=== PATIENT | female | born 1975 | race American Indian/Alaskan Native ===

== ENCOUNTER 2018-11-12 08:45 | Emergency (ER) | payer MEDICAID ==
[2018-11-12 08:59] VITALS: BP 123/65
[2018-11-12] MEDS ORDERED: TORADOL IM ONE (09:20)
--- NOTE | 2018-11-12 09:22 | Emergency Department Report ---
ED Back Pain/Injury HPI - General Chief Complaint: Abdominal Pain Stated Complaint: R SIDE PAIN Time Seen by Provider: 11/12/18 09:19 Source: patient Limitations: No Limitations - History of Present Illness Initial Comments: Patient is a 43-year-old [place] female presenting with right lower back pain for the past 2 weeks. 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 She denies any direct trauma. Patient denies abdominal pain dysuria or abnormal vaginal bleeding. Pain is worse with movement and with bending over. Patient states is aching sensation. Radiation: none Severity scale (0 -10): 6 Associated Symptoms: denies: chest pain, difficulty walking, cough, difficulty urinating, diaphoresis, incontinence, fever/chills, constipation, headaches, abdominal pain, loss of appetite, malaise, nausea/vomiting, rash, seizure, shortness of breath, syncope - Related Data Previous Rx's Medication Instructions Recorded Last Taken Type Ibuprofen [Motrin] 600 mg PO Q8H PRN #20 tablet 11/12/18 Unknown Rx methOCARBAMOL [Robaxin TAB] 500 mg PO Q6H PRN #15 tablet 11/12/18 Unknown Rx traMADol [Ultram] 50 mg PO Q6HR PRN #10 tablet 11/12/18 Unknown Rx Allergies Allergy/AdvReac Type Severity Reaction Status Date / Time No Known Allergies Allergy Verified 11/12/18 08:46 ED Review of Systems ROS: Stated complaint: R SIDE PAIN Other details as noted in HPI Comment: All other systems reviewed and negative ED Past Medical Hx - Past Medical History Thyroid disease ED Back Pain Physical Exam - Exam General: Vital signs noted. No distress. Alert and acting appropriately. Back/Abdomen: Yes Perilumbar Tenderness (Right sided point tenderness), No Abdominal Tenderness, No Perithoracic Tenderness, No Sacroiliac Tenderness, No Flank Tenderness, No Straight Leg Raise Pain Neuro: Yes Normal Sensation, Yes Normal DTR's, Yes Normal Gait, No Motor Weakness ED Course Vital Signs 11/12/18 08:55 Temperature 97.8 F Pulse Rate 63 Respiratory 20 Rate Blood Pressure 123/65 [Right] O2 Sat by Pulse 96 Oximetry Ed Back Pain Tests - Tests Tests: Normal UA ED Medical Decision Making - Lab Data Lab Results 11/12/18 Range/Units 09:14 Urine Color Yellow (Yellow) Urine Turbidity Clear (Clear) Urine pH 5.0 (5.0-7.0) Ur Specific [place] 1.028 (1.003-1.030) Urine Protein <15 mg/dl (Negative) mg/dL Urine Glucose (UA) Neg (Negative) mg/dL Urine Ketones Neg (Negative) mg/dL Urine Blood Sm (Negative) Urine Nitrite Neg (Negative) Urine Bilirubin Neg (Negative) Urine Urobilinogen < 2.0 (<2.0) mg/dL Ur Leukocyte Esterase Neg (Negative) Urine WBC (Auto) 2.0 (0.0-6.0) /HPF Urine RBC (Auto) 5.0 (0.0-6.0) /HPF U Epithel Cells (Auto) 2.0 (0-13.0) /HPF Urine Mucus Few /HPF Critical care attestation.: If time is entered above; I have spent that time in minutes in the direct care of this critically ill patient, excluding procedure time. ED Disposition Clinical Impression: Lumbar strain Qualifiers: Encounter type: initial encounter Qualified Code(s): S39.012A - Strain of muscle, fascia and tendon of lower back, initial encounter Disposition: DC-01 TO HOME OR SELFCARE Is pt being admited?: No Does the pt Need Aspirin: No Condition: Stable Instructions: Muscle Strain (ED) Referrals: KATHLEEN SALCEDO MD [Primary Care Provider] - 3-5 Days Forms: Work/School Release Form(ED) Time of Disposition: 09:53
[2018-11-12] MEDS ORDERED: ULTRAM PO ONE (09:30)
[2018-11-12] MEDS ORDERED: IBUPROFEN PO ONE (09:30)
[2018-11-12 09:39] LABS: Bilirubin,Urine NEG (Negative); Blood,Urine SM (Negative); Color,Urine Yellow (Yellow); Mucus,Urine FEW /HPF; Protein,Urine <15 mg/dL mg/dL (Negative); Urobilinogen,Urine < 2.0 mg/dL (<2.0)
== END 2018-11-12 10:01 | disposition home or self-care (01) ==
LOC: ED 08:45
DX: S39.012A Strain of muscle, fascia and tendon of lower back, initial encounter (principal); W94.29XA Exposure to other rapid changes in air pressure during ascent, initial encounter; Y93.89 Activity, other specified; Y92.89 Other specified places as the place of occurrence of the external cause; Y99.8 Other external cause status
CPT/HCPCS: 81001; 99283; J1885

== ENCOUNTER 2019-07-19 10:01 | Emergency (ER) | payer MEDICAID, OTHER ==
--- NOTE | 2019-07-19 10:13 | Event Note ---
ED Screening Note ED Screening Note: right knee swelling and right leg swelling states never had before no fall or injury no recent travel, no recent surgery, no hormones PMHx anxiety and depression no allergies to meds sister hx of DVT no personal hx of DVT/PE This initial assessment/diagnostic orders/clinical plan/treatment(s) is/are s ubject to change based on patients health status, clinical progression and re- assessment by fellow clinical providers in the ED. Further treatment and workup at subsequent clinical providers discretion. Patient/guardian urged not to elope from the ED as their condition may be serious if not clinically assessed and managed. Initial orders include: US BOWENS
--- NOTE | 2019-07-19 11:15 | Emergency Department Report ---
ED General Adult HPI - General Chief complaint: Extremity Problem,Nontraumatic Stated complaint: RT KNEE/LEG SWELLING PAIN Time Seen by Provider: 07/19/19 11:14 Source: patient Mode of arrival: Ambulatory Limitations: No Limitations - History of Present Illness Initial comments: 43-year-old -[place] female patient with history of anxiety and dep ression presents with complaints of right lower leg and knee swelling for the past week. She denies any previous history of DVT/PE, shortness of breath/chest pain, hormone therapy, recent long travel, or recent surgeries. She admits to history of blood clots in her sister. She rates the pain in her leg at a 5/10 in severity. She denies any injury to the leg or knee. -: Sudden Severity scale (0 -10): 5 Quality: aching Consistency: intermittent Improves with: none Worsens with: other (palpation) Associated Symptoms: denies other symptoms Treatments Prior to Arrival: none - Related Data Previous Rx's Medication Instructions Recorded Last Taken Type Ibuprofen [Motrin] 600 mg PO Q8H PRN #20 tablet 11/12/18 Unknown Rx methOCARBAMOL [Robaxin TAB] 500 mg PO Q6H PRN #15 tablet 11/12/18 Unknown Rx traMADoL [Ultram] 50 mg PO Q6HR PRN #10 tablet 11/12/18 Unknown Rx ALBUTEROL Inhaler (OR & NICU) 2 puff IH Q4HR PRN #1 inhalation 04/30/19 Unknown Rx [ProAir HFA Inhaler] Amoxicillin [Amoxicillin TAB] 875 mg PO BID #14 tablet 04/30/19 Unknown Rx Cetirizine HCl [Zyrtec 10mg tab] 10 mg PO DAILY #30 tablet 04/30/19 Unknown Rx Fluticasone [Flonase] 1 spray NS QDAY #1 bottle 04/30/19 Unknown Rx Naproxen [Naprosyn] 500 mg PO BID PRN #20 tablet 04/30/19 Unknown Rx predniSONE [Deltasone] 20 mg PO DAILY #15 tablet 04/30/19 Unknown Rx Allergies Allergy/AdvReac Type Severity Reaction Status Date / Time No Known Allergies Allergy Verified 11/12/18 08:46 ED Review of Systems ROS: Stated complaint: RT KNEE/LEG SWELLING PAIN Other details as noted in HPI Comment: All other systems reviewed and negative Cardiovascular: as per HPI Musculoskeletal: as per HPI ED Past Medical Hx - Past Medical History Previous Medical History?: Yes Hx Psychiatric Treatment: Yes (Anxiety, depression) Additional medical history: Thyroid disease - Surgical History Past Surgical History?: Yes Additional Surgical History: C-sections X3, Tubal Ligation - Social History Smoking Status: Never Smoker - Medications Home Medications: Home Medications Medication Instructions Recorded Confirmed Last Taken Type Ibuprofen [Motrin] 600 mg PO Q8H PRN #20 tablet 11/12/18 Unknown Rx methOCARBAMOL [Robaxin TAB] 500 mg PO Q6H PRN #15 tablet 11/12/18 Unknown Rx traMADoL [Ultram] 50 mg PO Q6HR PRN #10 tablet 11/12/18 Unknown Rx ALBUTEROL Inhaler (OR & NICU) 2 puff IH Q4HR PRN #1 inhalation 04/30/19 Unknown Rx [ProAir HFA Inhaler] Amoxicillin [Amoxicillin TAB] 875 mg PO BID #14 tablet 04/30/19 Unknown Rx Cetirizine HCl [Zyrtec 10mg tab] 10 mg PO DAILY #30 tablet 04/30/19 Unknown Rx Fluticasone [Flonase] 1 spray NS QDAY #1 bottle 04/30/19 Unknown Rx Naproxen [Naprosyn] 500 mg PO BID PRN #20 tablet 04/30/19 Unknown Rx predniSONE [Deltasone] 20 mg PO DAILY #15 tablet 04/30/19 Unknown Rx ED Physical Exam - General Limitations: No Limitations General appearance: alert, in no apparent distress, obese - Head Head exam: Present: atraumatic, normocephalic - Eye Eye exam: Present: normal appearance. Absent: scleral icterus - Respiratory Respiratory exam: Present: normal lung sounds bilaterally. Absent: respiratory distress - Cardiovascular Cardiovascular Exam: Present: regular rate, normal rhythm. Absent: systolic murmur, diastolic murmur, rubs, gallop - GI/Abdominal GI/Abdominal exam: Absent: guarding - Extremities Exam Extremities exam: Present: full ROM, calf tenderness (right side, no pitting edema noted, normal pedal pulses noted bilaterally). Absent: pedal edema, joint swelling - Back Exam Back exam: Present: full ROM - Neurological Exam Neurological exam: Present: alert, oriented X3 - Psychiatric Psychiatric exam: Present: normal affect, normal mood - Skin Skin exam: Present: warm, dry, intact, normal color. Absent: rash ED Course Vital Signs 07/19/19 12:25 Temperature 98.4 F Pulse Rate 59 L Respiratory 22 Rate Blood Pressure 119/75 [Right] O2 Sat by Pulse 98 Oximetry ED Medical Decision Making - Radiology Data Radiology results: report reviewed DUPLEX DOPPLER RIGHT LOWER EXTREMITY VEINS INDICATION: RLE edema FINDINGS: There is no thrombus within the deep veins of the right lower extremity from the common femoral to the calf veins. There is normal compression and augmentation on spectral analysis. IMPRESSION: No sonographic evidence for DVT in the right lower extremity. - Medical Decision Making 43-year-old -[place] female patient with history of anxiety and depression complaints of right lower leg swelling and pain for the past week. No history of DVT/PE, hormones, or recent injury. No significant swelling noted on exam, however there is tenderness to palpation of posterior right calf muscle. She sound is negative for DVT. Vitals are WNL. Recommend ibuprofen prn and follow-up with primary care or orthopedics as needed. Discussed strict return precautions in detail with patient such as new/worsening symptoms, increased swelling, pain, fever, shortness of breath/chest pain-patient verbalizes understanding. Critical care attestation.: If time is entered above; I have spent that time in minutes in the direct care of this critically ill patient, excluding procedure time. ED Disposition Clinical Impression: Right leg pain Disposition: -01 TO HOME OR SELFCARE Is pt being admited?: No Condition: Stable Instructions: Leg Edema (ED) Referrals: VÍCTOR HAYES MD [Primary Care Provider] - 3-5 Days KULWINDER BUTCHER MD [Staff Physician] - 3-5 Days
--- NOTE | 2019-07-19 12:18 | Vascular Lab Report ---
DUPLEX DOPPLER RIGHT LOWER EXTREMITY VEINS INDICATION: RLE edema FINDINGS: There is no thrombus within the deep veins of the right lower extremity from the common femoral to th e calf veins. There is normal compression and augmentation on spectral analysis. IMPRESSION: No sonographic evidence for DVT in the right lower extremity. Signer Name: Anatoliy Lyons MD Signed: 07/19/2019 12:13 PM Workstation Name: [id number]
[2019-07-19 12:26] VITALS: BP 119/75
== END 2019-07-19 14:07 | disposition home or self-care (01) ==
LOC: ED 10:01
DX: M25.561 Pain in right knee (principal); F32.9 Major depressive disorder, single episode, unspecified; F41.9 Anxiety disorder, unspecified; Z79.1 Long term (current) use of non-steroidal anti-inflammatories (NSAID); Z79.899 Other long term (current) drug therapy; Z98.51 Tubal ligation status
CPT/HCPCS: 99283

== ENCOUNTER 2020-01-28 21:59 | Emergency (ER) | payer SELFPAY ==
[2020-01-28 23:27] LABS: Basophils % (Auto) 0.4 % (0.0-1.8); Eosinophils # (Auto) 0.1 K/mm3 (0.0-0.4); Eosinophils % (Auto) 0.5 % (0.0-4.3); Hematocrit 40.1 % (30.3-42.9); Hemoglobin 13.2 gm/dl (10.1-14.3); Lymphocytes # (Auto) 1.8 K/mm3 (1.2-5.4); Lymphocytes % (Auto) 17.9 % (13.4-35.0); Mean Corpuscular HGB Conc 33 % (30-34); Mean Corpuscular Volume 86 fl (79-97); Monocytes # (Auto) 0.7 K/mm3 (0.0-0.8); Monocytes % (Auto) 6.6 % (0.0-7.3); Platelet Count 310 K/mm3 (140-440); Red Blood Count 4.65 M/mm3 (3.65-5.03); Red Cell Distribution Width 14.5 % (13.2-15.2)
[2020-01-28 23:34] LABS: INR 1.09 (0.87-1.13)
[2020-01-28 23:35] LABS: Partial Thromboplastin Time 27.8 Sec. (24.2-36.6)
--- NOTE | 2020-01-28 23:41 | Cat Scan Report ---
Examination: CT of the head without contrast Clinical information: Left-sided weakness for one day. Comparison: None Technical: Multiple axial CT images of the head were obtained without intravenous contrast. Sagittal and coronal reformats were obtained. All CTs at this facility utilize dose reduction techniques inc luding automated exposure control, iterative reconstruction and weight based dosing when appropriate to reduce patient radiation dose to as low as reasonable achievable. Findings: There is no CT evidence of acute intracranial hemorrhage or large territorial infarct. The ventricular system appears normal in size. No abnormal extra-axial fluid collections are identified. Evaluation of bony structures demonstrates no evidence of acute bony abnormality. The visualized para nasal sinuses and mastoid air cells appear clear. Impression: 1. No CT evidence of acute intracranial process. Signer Name: Zuleyma Davidson MD Signed: 01/28/2020 11:37 PM Workstation Name: [id number]
[2020-01-28 23:48] LABS: BUN/Creatinine Ratio 8; Blood Urea Nitrogen 7 mg/dL (7-17); Hemolysis Index 2
[2020-01-29] MEDS ORDERED: cloNIDine 0.1 MG TAB PO ONE (00:13)
[2020-01-29] MEDS ORDERED: cloNIDine 0.1 MG TAB ONE (00:14)
--- NOTE | 2020-01-29 00:20 | Emergency Department Report ---
ED General Adult HPI - General Chief complaint: Weakness Stated complaint: PRESSURE IN HEAD BODY WEAKNESS Time Seen by Provider: 01/29/20 00:08 Source: patient Mode of arrival: Ambulatory Limitations: No Limitations - History of Present Illness Initial comments: Patient is 44 years old female with no significant past medical history. Patient presented to the ER complaining of pressure in her head, generalized weakness and fatigue for the last 3 days. Patient stated that she feels like she has some weakness in her left upper and lower extremity but denied any problem walking or having any imbalance or ataxia. Patient denied any chest pain, shortness of breath, abdominal pain, neck pain, nausea or vomiting. No bowel or bladder incontinence. Patient found to have a blood pressure of 199/104. Severity scale (0 -10): 0 - Related Data Previous Rx's Medication Instructions Recorded Last Taken Type Ibuprofen [Motrin] 600 mg PO Q8H PRN #20 tablet 11/12/18 Unknown Rx methOCARBAMOL [Robaxin TAB] 500 mg PO Q6H PRN #15 tablet 11/12/18 Unknown Rx traMADoL [Ultram] 50 mg PO Q6HR PRN #10 tablet 11/12/18 Unknown Rx Albuterol INH(or & Nicu Only) 2 puff IH Q4HR PRN #1 inhalation 04/30/19 Unknown Rx [ProAir HFA Inhaler] Amoxicillin [Amoxicillin TAB] 875 mg PO BID #14 tablet 04/30/19 Unknown Rx Cetirizine HCl [Zyrtec 10mg tab] 10 mg PO DAILY #30 tablet 04/30/19 Unknown Rx Fluticasone [Flonase] 1 spray NS QDAY #1 bottle 04/30/19 Unknown Rx Naproxen [Naprosyn] 500 mg PO BID PRN #20 tablet 04/30/19 Unknown Rx predniSONE [Deltasone] 20 mg PO DAILY #15 tablet 04/30/19 Unknown Rx Allergies Allergy/AdvReac Type Severity Reaction Status Date / Time No Known Allergies Allergy Verified 11/12/18 08:46 ED Review of Systems ROS: Stated complaint: PRESSURE IN HEAD BODY WEAKNESS Other details as noted in HPI Comment: All other systems reviewed and negative Constitutional: denies: chills, fever Respiratory: denies: cough, shortness of breath, SOB with exertion, SOB at rest, wheezing Cardiovascular: denies: chest pain, palpitations, dyspnea on exertion Gastrointestinal: denies: abdominal pain, nausea, vomiting, diarrhea, constipation, hematemesis, melena, hematochezia Musculoskeletal: denies: back pain Neurological: headache, weakness. denies: numbness, paresthesias, confusion, abnormal gait, vertigo ED Past Medical Hx - Past Medical History Previous Medical History?: Yes Hx Psychiatric Treatment: Yes (Anxiety, depression) Additional medical history: Thyroid disease - Surgical History Past Surgical History?: Yes Additional Surgical History: C-sections X3, Tubal Ligation - Social History Smoking Status: Never Smoker Substance Use Type: None - Medications Home Medications: Home Medications Medication Instructions Recorded Confirmed Last Taken Type Ibuprofen [Motrin] 600 mg PO Q8H PRN #20 tablet 11/12/18 Unknown Rx methOCARBAMOL [Robaxin TAB] 500 mg PO Q6H PRN #15 tablet 11/12/18 Unknown Rx traMADoL [Ultram] 50 mg PO Q6HR PRN #10 tablet 11/12/18 Unknown Rx Albuterol INH(or & Nicu Only) 2 puff IH Q4HR PRN #1 inhalation 04/30/19 Unknown Rx [ProAir HFA Inhaler] Amoxicillin [Amoxicillin TAB] 875 mg PO BID #14 tablet 04/30/19 Unknown Rx Cetirizine HCl [Zyrtec 10mg tab] 10 mg PO DAILY #30 tablet 04/30/19 Unknown Rx Fluticasone [Flonase] 1 spray NS QDAY #1 bottle 04/30/19 Unknown Rx Naproxen [Naprosyn] 500 mg PO BID PRN #20 tablet 04/30/19 Unknown Rx predniSONE [Deltasone] 20 mg PO DAILY #15 tablet 04/30/19 Unknown Rx ED Physical Exam - General Limitations: No Limitations General appearance: alert, in no apparent distress - Head Head exam: Present: atraumatic, normocephalic, normal inspection - Eye Eye exam: Present: normal appearance - ENT ENT exam: Present: normal exam, normal orophraynx, mucous membranes moist - Neck Neck exam: Present: normal inspection, full ROM. Absent: tenderness, meningismu s, lymphadenopathy, thyromegaly - Respiratory Respiratory exam: Present: normal lung sounds bilaterally - Cardiovascular Cardiovascular Exam: Present: regular rate, normal rhythm, normal heart sounds - GI/Abdominal GI/Abdominal exam: Present: soft. Absent: distended, tenderness, guarding, rebound, rigid, normal bowel sounds, organomegaly, mass, bruit, pulsatile mass, hernia - Extremities Exam Extremities exam: Present: normal inspection, full ROM, normal capillary refill. Absent: tenderness, pedal edema, calf tenderness - Back Exam Back exam: Present: normal inspection, full ROM. Absent: CVA tenderness (R), CVA tenderness (L) - Neurological Exam Neurological exam: Present: alert, oriented X3, CN II-XII intact, normal gait, reflexes normal. Absent: abnormal gait, motor sensory deficit - Psychiatric Psychiatric exam: Present: normal mood - Skin Skin exam: Present: warm, intact, normal color ED Course Vital Signs 01/28/20 01/28/20 22:18 22:20 Temperature 997.9 F H Pulse Rate 90 Respiratory 18 Rate Blood Pressure 205/114 199/104 [Right] O2 Sat by Pulse 99 Oximetry ED Medical Decision Making - Lab Data Result diagrams: 01/28/20 22:46 01/28/20 22:46 - Radiology Data Radiology results: report reviewed - Medical Decision Making Patient is 44 years old female with no significant past medical history. Patient presented to the ER complaining of pressure in her head, generalized weakness and fatigue for the last 3 days. Patient stated that she feels like she has some weakness in her left upper and lower extremity but denied any problem walking or having any imbalance or ataxia. Patient denied any chest pain, shortness of breath, abdominal pain, neck pain, nausea or vomiting. No bowel or bladder incontinence. Patient found to have a blood pressure of 199/104. Patient received clonidine 0.1 mg with significant improvement in her blood p ressure and symptoms. CT brain is unremarkable. Labs reviewed and is negative. Stroke scale is 0. Patient is started on amlodipine 5 mg and advised to follow-up with her primary care physician in the next 2 to 3 days and to return to the ER if she develop any new symptoms. Critical care attestation.: If time is entered above; I have spent that time in minutes in the direct care of this critically ill patient, excluding procedure time. ED Disposition Clinical Impression: Malignant hypertension, Headache Disposition: DC-01 TO HOME OR SELFCARE Is pt being admited?: No Condition: Stable Instructions: Hypertension (ED) Referrals: PRIMARY CARE [Primary Care Provider] - 3-5 Days [facility] [Provider Group] - 3-5 Days
[2020-01-29 02:19] VITALS: BP 145/95
== END 2020-01-29 02:35 | disposition home or self-care (01) ==
LOC: ED 21:59
DX: I10 Essential (primary) hypertension (principal); R51 Headache; F32.9 Major depressive disorder, single episode, unspecified; F41.9 Anxiety disorder, unspecified; Z98.890 Other specified postprocedural states; Z98.51 Tubal ligation status; Z79.899 Other long term (current) drug therapy
CPT/HCPCS: 36415; 70450; 80048; 82962; 84484; 85025; 85610; 85670; 85730

== ENCOUNTER 2021-01-13 10:33 | Emergency (ER) | payer SELFPAY | END 2021-01-13 12:20 | disposition left against medical advice (07) | LOC: ED 10:33 ==

== ENCOUNTER 2022-01-24 10:40 | Emergency (ER) | payer BC ==
[2022-01-24] MEDS ORDERED: SODIUM CHLORIDE 0.9% 500 ML 500 ML IV ONE (14:23)
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
--- NOTE | 2022-01-24 15:04 | XRay Report ---
CHEST 2 VIEWS INDICATION: Chest Pain. COMPARISON: 07/09/2018. FINDINGS: Support devices: None. Heart: Within normal limits. Lungs/Pleura: No acute air space or interstitial disease. No significant pleural effusion. IMPRESSION: No acute findings. Signer Name: Suhail Jarvis MD Signed: 01/24/2022 3:00 PM Workstation Name: [id number]
[2022-01-24 15:18] LABS: Basophils % (Auto) 0.5 % (0.0-1.8); Eosinophils % (Auto) 0.6 % (0.0-4.3); Hematocrit 37.1 % (30.3-42.9); Hemoglobin 11.9 gm/dl (10.1-14.3); Lymphocytes # (Auto) 1.7 K/mm3 (1.2-5.4); Mean Corpuscular HGB Conc 32 % (30-34); Mean Corpuscular Volume 82 fl (79-97); Monocytes # (Auto) 0.6 K/mm3 (0.0-0.8); Monocytes % (Auto) 7.8 % (0.0-7.3); Platelet Count 275 K/mm3 (140-440); Red Blood Count 4.53 M/mm3 (3.65-5.03); Red Cell Distribution Width 14.9 % (13.2-15.2)
[2022-01-24 15:42] LABS: Alanine Aminotransferase 31 units/L (7-56); Albumin 4.3 g/dL (3.9-5); BUN/Creatinine Ratio 20; Blood Urea Nitrogen 12 mg/dL (7-17); Calcium 9.3 mg/dL (8.4-10.2); Hemolysis Index 0
[2022-01-24 17:14] VITALS: BP 134/77
--- NOTE | 2022-01-27 09:49 | Electrocardiograph Report ---
[facility] Test Date: 2022-01-24 Test Time: 11:38:14 Pat Name: BISI HO Department: Room: Gender: F [employer] Apprentice: JOSE : 1975 Requested By: TROY MERCADO Order Number: [id number] Reading MD: Edil Law Measurements Intervals [place] Rate: 88 P: 69 VT: 181 QRS: 51 QRSD: 90 T: 60 QT: 379 QTc: 460 Interpretive Statements Sinus rhythm NSST'S No previous ECG available for comparison Electronically Signed On 01-27-2022 9:49:08 EDT by Edil Law
== END 2022-01-24 18:36 | disposition home or self-care (01) ==
LOC: ED 10:40
DX: R07.89 Other chest pain (principal); F41.9 Anxiety disorder, unspecified; F32.9 Major depressive disorder, single episode, unspecified; E07.9 Disorder of thyroid, unspecified; Z98.890 Other specified postprocedural states
CPT/HCPCS: 36415; 71046; 80053; 84484; 85025; 93005; 96360; 96361; 99284; J7040